=== PATIENT | male | born 1970 | race Caucasian/White ===

== ENCOUNTER → 2021-02-09 | Outpatient (CLI) | payer OTHER | LOC: CAT 02-08 13:28 | PROVIDERS: ATTEND Specialist | DX: M47.816 Spondylosis without myelopathy or radiculopathy, lumbar region (principal); M43.17 Spondylolisthesis, lumbosacral region; M53.2X6 Spinal instabilities, lumbar region; M48.07 Spinal stenosis, lumbosacral region ==

== ENCOUNTER → 2021-03-28 | Outpatient (CLI) | payer OTHER ==
[~2021-03-28] MED LIST: BENTYL 10 MG CA10 MG PO; FAMOTIDINE40 MG PO; MAGNESIUM500 MG PO; OMEPRAZOLE40 MG PO; ST. JOHN'S WOR300 MG PO; XANAX 0.5 MG0.5 M1 PO
[2021-03-28 08:42] LABS: HEMATOCRIT 47.1 % (42.0-52.0); HEMOGLOBIN 15.6 gm/dL (14.0-18.0); MCHC 33.1 g/dL (28.0-37.0); MCV 87.6 fL (80.0-100.0); RBC 5.38 mil/uL (4.50-6.00); RDW 15.1 % (10.5-14.5); WBC 4.8 thou/uL (4.0-11.0)
[2021-03-28 08:47] LABS: URINE BILIRUBIN NEGATIVE (Negative); URINE BLOOD NEGATIVE (Negative); URINE CLARITY CLEAR; URINE COLOR YELLOW; URINE GLUCOSE-RANDOM* NEGATIVE (Negative); URINE KETONES NEGATIVE (Negative); URINE LEUKOCYTES-REFLEX NEGATIVE (Negative); URINE NITRITE-REFLEX NEGATIVE (Negative); URINE PROTEIN (DIPSTICK) NEGATIVE (Negative); URINE SPECIFIC GRAVITY <= 1.005 (1.005-1.035); URINE UROBILINOGEN 0.2 E.U./dl (0.2-1.0)
[2021-03-28 08:57] LABS: APTT 27.3 Seconds (24.5-32.8); PROTIME 10.9 Seconds (10.5-12.1)
[2021-03-28 09:02] LABS: ALBUMIN 4.2 g/dL (3.4-5.0); CALCIUM 9.3 mg/dL (8.5-10.1); CREATININE 0.9 mg/dL (0.7-1.3); POTASSIUM 4.2 mmol/L (3.5-5.1); TOTAL BILIRUBIN 0.6 mg/dL (0.2-1.0)
--- NOTE | 2021-03-28 15:15 | EKG ---
[address] [employer] [address] ELECTROCARDIOGRAM REPORT Name: BEATRICE VALDES Room #: [facility] [id number] Admission: 03/28/21 Attend Phys: Juan Olivier, Discharge: Date of : 66 Report #: [id number] [facility] Test Date: 2021-03-28 Test Time: 08:41:31 Pat Name: BEATRICE VALDES Department: Room: Gender: Mission Planner: Jovanna HANCOCK : 1970 Requested By: Juan Olivier Order Number: [id number] MD: Brian Fox Measurements Intervals [place] Rate: 75 P: 74 MS: 181 QRS: 72 QRSD: 97 T: 50 QT: 413 QTc: 462 Interpretive Statements Sinus rhythm Probable left atrial enlargement RSR' in V1 or V2, right VCD or RVH No previous ECG available for comparison Electronically Signed On 03-28-2021 15:15:00 AUTO ADJUDICATION SPECIALIST by Brian Fox [email or web address] <ELECTRONICALLY SIGNED> By: Brian Fox MD, LOCATED WITHIN [facility] 03/28/21 1515 08 0 Brian Fox MD, FACC /EPI
== END ==
LOC: PAC 08:00
PROVIDERS: ATTEND Specialist
DX: Z01.812 Encounter for preprocedural laboratory examination (principal); Z01.810 Encounter for preprocedural cardiovascular examination; M43.17 Spondylolisthesis, lumbosacral region; M48.07 Spinal stenosis, lumbosacral region

== ENCOUNTER 2021-04-11 09:08 | Inpatient (IN) | payer OTHER ==
[~2021-04-11] VITALS: Ht 193 cm; Wt 97.5 kg
[2021-04-11 13:46] VITALS: BP 141/91
[2021-04-11 20:11] VITALS: BP 145/90
--- NOTE | 2021-04-12 08:21 | NUR ---
RECEIVED CARE OF THIS PATIENT AT 1944 FROM [facility] VIA BED ACCOMPANIED HOLDING PERSONEL AND . PATIENT ALERT AND ORIENTED X4. 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 HAS HAD A TOTAL OF 4 EPISODES OF EMISIS. MED GIVEN WHEN ABLE. MS CUPOLA MELTER HELPER DC'D AND CHANGED TO DILUADID. HAD A COUPLE OF EPISODES OF ANXIETY. MED WAS GIVEN FOR THIS. UNABLE TO VIEW DRESSING ON BACK ANY MOVEMENT MADE PATIENT NAUSEATED. EDUCATED PATIENT ON DEEP BREATHING AND COUGHING WELL MOVING LEGS AND FEET WHEN EVER POSSIBLE. 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
[2021-04-12 09:00] VITALS: BP 118/75
[2021-04-12 12:30] VITALS: BP 118/71
[2021-04-12 16:30] VITALS: BP 109/76
[2021-04-12 19:55] VITALS: BP 116/72
--- NOTE | 2021-04-13 06:00 | NUR ---
RECEIVED CARE OF THIS PATIENT AT 1900. PATIENT ALERT AND ORIENTED X4. UP WITH ASSIST. HAS FOLY PATENT YELLOW URINE. DRESSING ON BACK D/I. ANGEL LUIS ON BACK. C/O PAIN, MED GIVEN. SLEPT MOST OF NIGHT.
[2021-04-13 07:34] VITALS: BP 113/73
[2021-04-13 08:30] VITALS: BP 113/73
[2021-04-13 15:23] VITALS: BP 149/94
[2021-04-13 17:12] VITALS: BP 149/94
== END 2021-04-13 19:00 | disposition home or self-care (01) | DRG 460 ==
LOC: PRE 09:08 → TBA 10:29 → PRE 10:50 → 4S 19:33
PROVIDERS: ADMIT Specialist; ATTEND Specialist
PROC: 01NB0ZZ Release Lumbar Nerve, Open Approach (ICD-10-PCS; principal; 2021-04-11)
PROC: 0SG3071 Fusion of Lumbosacral Joint with Autologous Tissue Substitute, Posterior Approach, Posterior Column, Open Approach (ICD-10-PCS; principal; 2021-04-11)
PROC: 01NR0ZZ Release Sacral Nerve, Open Approach (ICD-10-PCS; principal; 2021-04-11)
DX: M43.17 Spondylolisthesis, lumbosacral region (principal); M47.817 Spondylosis without myelopathy or radiculopathy, lumbosacral region; G89.29 Other chronic pain; M19.90 Unspecified osteoarthritis, unspecified site; K21.9 Gastro-esophageal reflux disease without esophagitis; F41.1 Generalized anxiety disorder; M48.07 Spinal stenosis, lumbosacral region; K58.9 Irritable bowel syndrome, unspecified; Z79.899 Other long term (current) drug therapy; Z28.21 Immunization not carried out because of patient refusal; Z88.1 Allergy status to other antibiotic agents; Z88.0 Allergy status to penicillin; Z88.2 Allergy status to sulfonamides; Z87.442 Personal history of urinary calculi; Z80.1 Family history of malignant neoplasm of trachea, bronchus and lung; Z80.0 Family history of malignant neoplasm of digestive organs; Z82.49 Family history of ischemic heart disease and other diseases of the circulatory system
CPT/HCPCS: 10102; 50010; 50101; 50331; 50402; 50850; 50923; 51878; 52258; 56525; 56528; 56532; 57103; 58457; 58544; 58545; 58546; 58547; 58556; 58567; 58745; 58759; 58782; 59202; 62110; 62900; 70005